=== PATIENT | male | born 1965 | race Caucasian/White ===

== ENCOUNTER 2021-05-15 20:51 | Emergency (ER) | payer OTHER ==
[2021-05-15 21:27] LABS: HEMOGLOBIN 15.5 gm/dl (14.0-17.5); RED BLOOD COUNT 5.07 M/UL (4.20-5.50); WHITE BLOOD COUNT 18.9 K/UL (4.5-11.0)
[2021-05-15 21:48] LABS: BUN/CREATININE RATIO 18 (0-10)
[2021-05-16] MEDS ORDERED: BACITRACIN28.4 GM TP (03:11)
[2021-05-16] MEDS ORDERED: VIBRAMYCIN100 MG PO (03:11)
[2021-05-16] MEDS ORDERED: CEPHALEXIN500 M1 PO (03:11)
== END 2021-05-16 03:30 | disposition home or self-care (01) ==
LOC: ER1 20:51
PROVIDERS: Physician Assistant
DX: L03.012 Cellulitis of left finger (principal); L02.512 Cutaneous abscess of left hand; Z88.1 Allergy status to other antibiotic agents; F17.290 Nicotine dependence, other tobacco product, uncomplicated; Z23 Encounter for immunization
CPT/HCPCS: 73130; 80053; 83605; 85025; 85652; 86140; 87040; 90471; 90715; 96374; 99283; J0696

== ENCOUNTER 2021-05-19 19:25 | Emergency (ER) | payer OTHER ==
[~2021-05-19 19:25] MED LIST: BACITRACIN28.4 GM TP; CEPHALEXIN500 M1 PO; VIBRAMYCIN100 MG PO
[2021-05-19 22:43] LABS: HEMOGLOBIN 14.9 gm/dl (14.0-17.5); RED BLOOD COUNT 4.8 M/UL (4.20-5.50); WHITE BLOOD COUNT 13.9 K/UL (4.5-11.0)
[2021-05-19 23:04] LABS: BUN/CREATININE RATIO 19 (0-10)
[2021-05-19] MEDS ORDERED: CLEOCIN HCL150 MG PO (23:31)
== END 2021-05-19 23:40 | disposition home or self-care (01) ==
LOC: ER1 19:25
PROVIDERS: Physician Assistant Medical
DX: L03.012 Cellulitis of left finger (principal); E11.9 Type 2 diabetes mellitus without complications; Z88.8 Allergy status to other drugs, medicaments and biological substances
CPT/HCPCS: 80053; 85025; 85652; 86140; 87040; 87070; 87077; 87186; 87205; 99283